=== PATIENT | male | born 1995 | race Caucasian/White ===

== ENCOUNTER 2022-02-13 11:09 | Emergency (ER) | payer OTHER ==
[2022-02-13 11:24] VITALS: BP 130/76; PULSE 77; RESP 16; TEMP 97.9; BMI 21.9
[2022-02-13 11:58] LABS: HEMATOCRIT 44.8 % (35.4-49); HEMOGLOBIN 15.7 G/dL (11.7-16.9); MCH 32.2 pg (25.7-33.7); MCHC 35.1 g/dl (32.0-35.9); MEAN CELL VOLUME 91.9 fl (80-96); MEAN PLT VOLUME 6.1 fl (7.5-11.1); PLATELET COUNT 279.6 10^3/uL (134-434); RBC 4.88 10^6/uL (4.00-5.60); RDW 12.7 % (11.9-15.9); WHITE BLOOD COUNT 4.9 10^3/uL (4.0-10.8)
[2022-02-13 12:17] LABS: ALBUMIN 4.5 g/dl (3.4-5.0); ALK PHOS 78 U/L (45-117); ANION GAP 4 MMOL/L (8-16); BILIRUBIN,TOTAL 0.8 mg/dl (0.2-1); CALCIUM 9.7 mg/dl (8.5-10); CHLORIDE 103 mmol/L (98-107); CO2 27 mmol/L (21-32); CREATININE 0.9 mg/dl (0.55-1.3); GLUCOSE,RANDOM 97 mg/dl (74-106); SGOT/AST 31 U/L (15-37); SGPT/ALT 27 U/L (13-61); SODIUM 134 mmol/L (136-145); TOT PROT 7.5 g/dl (6.4-8.2)
[2022-02-13 12:39] LABS: PLATELET ESTIMATE ADEQUATE
== END 2022-02-13 12:26 | disposition home or self-care (01) ==
LOC: FER 11:09
DX: R07.89 Other chest pain (principal)
CPT/HCPCS: 36415; 71046-TC-FY; 80053; 84484; 85027; 93005; 99285-25

== ENCOUNTER 2022-05-04 11:00 | Inpatient (IN) | payer OTHER ==
[2022-05-04] MEDS ORDERED: IBUPROFEN 600 MG TABLET (FP) PO ONE ×2 (11:06→11:18)
[2022-05-04 11:09] VITALS: BMI 23.0
[2022-05-04] MEDS ORDERED: morphine CARPU-JECT 4 MG/1 ML DISP.SYRIN IVPUSH ONE ×3 (11:34→16:13)
[2022-05-04] MEDS ORDERED: morphine SULFATE 4 MG/ML VIAL ONE ×3 (11:38→16:48)
[2022-05-04 12:21] LABS: INR 1.03 (0.83-1.09); PROTHROMBIN TIME (PATIENT) 11.8 SEC (9.7-13.0)
[2022-05-04 12:25] LABS: ALBUMIN 4.3 g/dl (3.4-5.0); CALCIUM 9.6 mg/dl (8.5-10); CREATININE 0.8 mg/dl (0.55-1.3); TOT PROT 7.4 g/dl (6.4-8.2)
[2022-05-04 12:34] LABS: HEMATOCRIT 42.1 % (35.4-49); HEMOGLOBIN 14.7 G/dL (11.7-16.9); MCH 31.8 pg (25.7-33.7); MEAN CELL VOLUME 90.8 fl (80-96); MEAN PLT VOLUME 6.2 fl (7.5-11.1); PLATELET COUNT 348.2 10^3/uL (134-434); RBC 4.64 10^6/uL (4.00-5.60); RDW 13.2 % (11.9-15.9); WHITE BLOOD COUNT 14.7 10^3/uL (4.0-10.8)
[2022-05-04 12:39] LABS: ACTIVATED PTT 32.4 SECONDS (25.2-36.5)
[2022-05-04 12:42] LABS: PLATELET ESTIMATE ADEQUATE
[2022-05-04] MEDS ORDERED: ONDANSETRON 4 MG/2 ML VIAL ONE (20:26)
[2022-05-04] MEDS ORDERED: ONDANSETRON 4 MG/2 ML VIAL IVPUSH ONE (20:27)
[2022-05-04] MEDS ORDERED: ONDANSETRON 4 MG/2 ML VIAL IVPUSH PRN (22:34)
[2022-05-04] MEDS ORDERED: ACETAMINOPHEN INJECTION 100 ML IVPB ONE (22:37)
[2022-05-04] MEDS: ACETAMINOPHEN 1000 MG/100 ML BAG IVPB SCH (23:01)
[2022-05-04 23:02] LABS: HEMATOCRIT 39.5 % (35.4-49); HEMOGLOBIN 13.7 GM/dL (11.7-16.9); MCH 31.2 pg (25.7-33.7); MCHC 34.7 g/dl (32.0-35.9); MEAN CELL VOLUME 89.9 fl (80-96); PLATELET COUNT 311 10^3/uL (134-434); RDW 12.7 % (11.9-15.9); WHITE BLOOD COUNT 10.3 K/mm3 (4.0-10.0)
[2022-05-04 23:37] LABS: PH,URINE 7.5 (5.0-8.0); URINE APPEARANCE CLEAR; URINE BILIRUBIN NEGATIVE (NEGATIVE); URINE COLOR YELLOW; URINE GLUCOSE (UA) NEGATIVE (NEGATIVE); URINE KETONE TRACE (NEGATIVE); URINE NITRITE NEGATIVE (NEGATIVE); URINE PROTEIN TRACE (NEGATIVE)
[2022-05-04 23:38] LABS: URINE LEUK ESTERASE NEGATIVE (NEGATIVE)
[2022-05-05 03:57] VITALS: RESP 18
[2022-05-05] MEDS: ACETAMINOPHEN 1000 MG/100 ML BAG IVPB SCH ×3 (06:39→16:56)
[2022-05-05] MEDS: LIDOCAINE 5% TOPICAL PATCH TP SCH (10:12)
[2022-05-05 10:21] LABS: HEMATOCRIT 39.8 % (35.4-49); HEMOGLOBIN 14.1 GM/dL (11.7-16.9); MCH 32.2 pg (25.7-33.7); MCHC 35.4 g/dl (32.0-35.9); MEAN CELL VOLUME 90.9 fl (80-96); MEAN PLT VOLUME 6.2 fl (7.5-11.1); PLATELET COUNT 341 10^3/uL (134-434); RBC 4.38 M/mm3 (4.00-5.60); RDW 12.7 % (11.9-15.9); WHITE BLOOD COUNT 10.2 K/mm3 (4.0-10.0)
[2022-05-05 10:54] LABS: ALBUMIN 3.7 g/dl (3.4-5.0); BLOOD UREA NITROGEN 7.4 mg/dL (7-18); CALCIUM 9.3 mg/dL (8.5-10.1); MAGNESIUM 1.8 mg/dL (1.8-2.4)
[2022-05-05 10:57] LABS: BILIRUBIN,TOTAL 1.2 mg/dL (0.2-1); TOT PROT 7.1 g/dl (6.4-8.2); URIC ACID 1.4 mg/dL (2.6-7.2)
[2022-05-05] MEDS ORDERED: LIDOCAINE PATCH REMOVAL MC SCH (22:00)
[2022-05-06] MEDS ORDERED: MELATONIN 5 MG TABLETS PO PRN (04:13)
[2022-05-06] MEDS ORDERED: ACETAMINOPHEN 1000 MG/100 ML BAG IVPB PRN (04:13)
[2022-05-06 08:45] LABS: HEMATOCRIT 42.3 % (35.4-49); HEMOGLOBIN 14.9 GM/dL (11.7-16.9); MCH 31.8 pg (25.7-33.7); MCHC 35.1 g/dl (32.0-35.9); MEAN CELL VOLUME 90.6 fl (80-96); MEAN PLT VOLUME 6.5 fl (7.5-11.1); PLATELET COUNT 346 10^3/uL (134-434); RBC 4.67 M/mm3 (4.00-5.60); RDW 12.6 % (11.9-15.9); WHITE BLOOD COUNT 10.2 K/mm3 (4.0-10.0)
[2022-05-06 09:12] LABS: BLOOD UREA NITROGEN 5.8 mg/dL (7-18); CALCIUM 9.4 mg/dL (8.5-10.1)
[2022-05-06 09:13] LABS: MAGNESIUM 1.9 mg/dL (1.8-2.4)
[2022-05-06 09:15] LABS: CREATININE 0.8 mg/dL (0.55-1.3); PHOSPHOROUS 3.2 mg/dL (2.5-4.9)
[2022-05-06] MEDS ORDERED: oxyCODONE HCL 5 MG TABLET PO PRN ×2 (10:01)
[2022-05-06] MEDS: LIDOCAINE 5% TOPICAL PATCH TP SCH (10:30)
[2022-05-06 14:11] VITALS: BP 138/81; PULSE 65; TEMP 98.8
== END 2022-05-06 16:03 | disposition home or self-care (01) | DRG 351 ==
LOC: FER 11:00 → JER 11:00 → JERBED 20:04 → OBSVTOIN 22:24 → J6S 05-05 01:13
PROVIDERS: ADMIT Internal Medicine; ATTEND Internal Medicine
PROC: 0S9D3ZZ Drainage of Left Knee Joint, Percutaneous Approach (ICD-10-PCS; principal; 2022-05-06)
DX: M25.462 Effusion, left knee (principal); S72.422A Displaced fracture of lateral condyle of left femur, initial encounter for closed fracture; S72.432A Displaced fracture of medial condyle of left femur, initial encounter for closed fracture; S89.92XA Unspecified injury of left lower leg, initial encounter; W01.0XXA Fall on same level from slipping, tripping and stumbling without subsequent striking against object, initial encounter; Y93.89 Activity, other specified; Y92.89 Other specified places as the place of occurrence of the external cause; Y99.8 Other external cause status; Z72.0 Tobacco use; F12.90 Cannabis use, unspecified, uncomplicated; S83.015A Lateral dislocation of left patella, initial encounter
CPT/HCPCS: 36415; 73564-TC-LT-FY; 73706-TC-RT; 73719-LT; 80048; 80053; 81003; 83735; 84100; 84550; 85027; 85610; 85730; 86850; 86900; 86901; 93005; 93010; 97116-GP; 97161-GP; 99285-25; C9803-CS; G0378; Q9967; U0003; U0005

== ENCOUNTER 2023-06-16 01:36 | Emergency (ER) | payer OTHER ==
[2023-06-16 01:41] VITALS: BP 110/68; PULSE 88; RESP 16; TEMP 98.6; BMI 22.1
[2023-06-16] MEDS ORDERED: IBUPROFEN 600 MG TABLET (FP) PO ONE (01:45)
[2023-06-16] MEDS: IBUPROFEN 600 MG TABLET (FP) PO ONE (02:12)
== END 2023-06-16 02:33 | disposition home or self-care (01) ==
LOC: FER 01:36
DX: M79.644 Pain in right finger(s) (principal); S69.91XA Unspecified injury of right wrist, hand and finger(s), initial encounter; R22.31 Localized swelling, mass and lump, right upper limb; W22.8XXA Striking against or struck by other objects, initial encounter
CPT/HCPCS: 73130-TC-RT-FY; 99283-25